=== PATIENT | male | born 1990 | race African-American/Black ===

== ENCOUNTER 2021-03-19 11:02 | Emergency (ER) | payer OTHER ==
[~2021-03-19] VITALS: Ht 188 cm; Wt 63.6 kg
--- NOTE | 2021-03-19 11:04 | NUR ---
TIFFANIE LEWIS VIA GURNEY TO BED 01.
[2021-03-19 11:17] VITALS: BP 129/71
--- NOTE | 2021-03-19 11:47 | NUR ---
XRAY BEDSIDE WITH PATIENT
--- NOTE | 2021-03-19 12:18 | NUR ---
30 Y MALE PT BIB [facility] C/O LT WRIST PAIN LT CHEEK PAIN S/P FALL FROM [facility] NO LOC/KO. PAIN 08/25. PT IS STILL ABLE TO MOVE HIS FINGERS AT THIS TIME AND CAP REFILL <2 SECONDS. PT DENIES ANY PAIN RADIATING UP HIS ARM AND STATED IT IS LOCALIZED IN HIS HAND/WRIST. ABRASION NOTED ON L SIDE OF CHEECK, BUT PT DENIES ANY PAIN AT THIS TIME. 18 G IV ESATBLIHSED MY EMS IN R AC IN FIELD. TET-UNK MED-NONE HX-NONE NKA
[2021-03-19] MEDS ORDERED: HYDROcodone/APAP 5/325 MG 1 TAB TAB PO ONE (12:25)
[2021-03-19] MEDS ORDERED: IBUP-2213 PO (12:35)
[2021-03-19] MEDS ORDERED: BACITRACIN OINT 500 UNITS/GM PKT TP ONE ×2 (12:35→12:50)
[2021-03-19] MEDS ORDERED: IBUPROFEN 600 MG TAB PO ONE (12:35)
--- NOTE | 2021-03-19 12:58 | NUR ---
PT PLACED IN LEFT FABERICATED 4" ORTHO-GLASS ULNAR GUTTER SPLINT AND WRAPPED WITH 1" LILIA WRAPS X2 AND 3" LILIA WRAP X1 CMS WNL BEFORE AND AFTER. ERMD NOTIFIED AND APPROVED SPLINT.
[2021-03-19 13:01] VITALS: BP 136/78
== END 2021-03-19 13:01 | disposition home or self-care (01) ==
LOC: MED 11:02
DX: S62.317A Displaced fracture of base of fifth metacarpal bone, left hand, initial encounter for closed fracture (principal); S00.81XA Abrasion of other part of head, initial encounter; G89.11 Acute pain due to trauma; Z79.899 Other long term (current) drug therapy; W19.XXXA Unspecified fall, initial encounter; Y93.55 Activity, bike riding; Y92.89 Other specified places as the place of occurrence of the external cause; Y99.8 Other external cause status
CPT/HCPCS: 29125; 73110; 73130; 99284; Q0092